=== PATIENT | female | born 1955 | race Asian ===

== ENCOUNTER 2022-08-19 15:13 | Emergency (ER) | payer OTHER ==
[~2022-08-19] VITALS: Ht 170.2 cm; Wt 106.6 kg
[2022-08-19 15:25] VITALS: BP 153/62; TEMP 102
[2022-08-19 16:50] LABS: PLATELET COUNT 208 K/uL (152-353)
[2022-08-19 17:00] LABS: POTASSIUM 3.6 mmol/L (3.6-5.2)
== END 2022-08-19 17:49 | disposition home or self-care (01) ==
LOC: ED 15:13
PROVIDERS: Emergency Medicine
DX: U07.1 COVID-19 (principal)
CPT/HCPCS: 80048; 85027; 87502; 87635; 99283; U0003

== ENCOUNTER 2022-09-06 08:55 | Emergency (ER) | payer OTHER ==
[~2022-09-06] VITALS: Ht 170.2 cm; Wt 102.1 kg
[2022-09-06 09:04] VITALS: TEMP 97.4
[2022-09-06 10:26] VITALS: BP 142/92
== END 2022-09-06 11:09 | disposition home or self-care (01) ==
LOC: ED 08:55
DX: I10 Essential (primary) hypertension (principal); M76.62 Achilles tendinitis, left leg; Z91.14 Patient's other noncompliance with medication regimen
CPT/HCPCS: 99283